=== PATIENT | female | born 1945 | race Caucasian/White ===

== ENCOUNTER → 2018-06-08 08:40 | Outpatient (CLI) | payer MEDICARE, OTHER, SELFPAY ==
--- NOTE | 2018-06-08 | DI.MG.S_ITS ---
BILATERAL DIGITAL SCREENING MAMMOGRAM 3D/2D WITH CAD WITH AUGMENTATION: 06/08/2018 CLINICAL: Routine screening. Comparison is made to exams dated: 03/17/2017 mammogram - [facility], 06/30/2013 mammogram, and 01/15/2012 mammogram - [facility]. The tissue of both breasts is predominantly fatty. Current study was also evaluated with a Computer Aided Detection (CAD) system. Bilateral breast implants are intact. There is a stable benign area of fat necrosis in both breasts. There also are stable benign calcifications in both breasts. No significant masses, calcifications, or other findings are seen in either breast. There has been no significant interval change. IMPRESSION: There is no mammographic evidence of malignancy. A 1 year screening mammogram is recommended. This exam was interpreted at Station ID: [id number]. NOTE: For mammograms, a report in lay terms will be sent to the patient. Approximately 15% of breast malignancies will not be visualized mammographically. In the management of a palpable breast mass, a negative mammogram must not discourage biopsy of a clinically suspicious lesion. Electronically Signed By: Ted ramos/zuri:06/08/2018 09:23:57 letter sent: Normal Exam ACR BI-RADS Category 2: Benign Finding(s) 3342F
== END ==
PROVIDERS: Visit Provider Physician Assistant
DX: Z12.31 Encounter for screening mammogram for malignant neoplasm of breast (principal)
CPT/HCPCS: 77063; 77067

== ENCOUNTER → 2019-03-22 09:39 | Outpatient (CLI) | payer MEDICARE, OTHER, SELFPAY ==
--- NOTE | 2019-03-22 | DI.MG.S_ITS ---
BILATERAL DIGITAL SCREENING MAMMOGRAM 3D/2D WITH CAD WITH AUGMENTATION: 03/22/2019 CLINICAL: Pre MRI screening Lump in Right breast. Comparison is made to exams dated: 06/08/2018 mammogram, 03/17/2017 mammogram - [facility], and 06/30/2013 mammogram - [facility]. The tissue of both breasts is predominantly fatty. Current study was also evaluated with a Computer Aided Detection (CAD) system. Bilateral breast implants are intact. There is a stable benign area of fat necrosis in both breasts. There also are stable benign calcifications in both breasts. No significant masses, calcifications, or other findings are seen in either breast. There has been no significant interval change. IMPRESSION: There is no mammographic evidence of malignancy. A 1 year screening mammogram is recommended. This exam was interpreted at Station ID: [id number]. NOTE: For mammograms, a report in lay terms will be sent to the patient. Approximately 15% of breast malignancies will not be visualized mammographically. In the management of a palpable breast mass, a negative mammogram must not discourage biopsy of a clinically suspicious lesion. Electronically Signed By: Monty torres/zuri:03/22/2019 19:18:09 letter sent: Normal Exam ACR BI-RADS Category 2: Benign Finding(s) 3342F
--- NOTE | 2019-03-22 | DI.MRI.S_ITS ---
SCREENING BREAST MRI OF BOTH BREASTS: 03/22/2019 CLINICAL: Lump in right breast. TECHNIQUE: The patient was placed prone in a dedicated breast imaging coil. Precontrast axial STIR and 3D FLASH without fat saturation sequences were obtained. Both before and after bolus injection of contrast, sequential 1-minute axial 3D FLASH with fat saturation sequences for 3 time points, with subtraction images and maximum intensity projections (MIP's) generated. Delayed sagittal FLASH images with fat saturation were also obtained. Computer-aided detection, including computer algorithm analysis of MRI image data for lesion detection and characterization, pharmacokinetic analysis, with further physician review for interpretation, was performed. COMPARISON: Mammogram dated 03/22/19, 06/08/18, 03/17/17, and 06/30/13. FINDINGS: Image quality: Excellent Right breast: There is minimal background parenchymal enhancement. There are large, extensive areas of fat intensity lesions within the right breast predominantly anterior to the saline breast implant with surrounding rim of calcification correlating with dense dystrophic and rim calcified masses seen on comparison mammograms. Mammographically these appear typical for fat necrosis which have remained stable over the past several years. There is mild, relatively thin peripheral enhancement surrounding these calcified central fat intensity masses compatible with postinflammatory changes. Otherwise, no suspicious mass lesions, or abnormal non-mass enhancement. Right saline breast implant appears intact and unremarkable in MRI appearance. No suspicious skin or nipple abnormalities. Left breast: There is minimal background parenchymal enhancement. Numerous rim calcified fat intensity masses are noted in the left breast correlating with areas of fat necrosis seen on comparison mammograms. These also remain stable over the years. These also demonstrate thin peripheral enhancement which is also likely related to postinflammatory changes. Otherwise, no suspicious mass lesions or abnormal non-mass enhancement. Incidental note of a 6 mm intramammary lymph node in the anterior upper, inner breast. Left saline breast implant appears intact and unremarkable in appearance. No suspicious skin or nipple abnormalities. Miscellaneous: No axillary or internal mammary chain adenopathy identified in the bilateral breast/axilla. Limited evaluation of the chest and abdomen appear unremarkable. IMPRESSION: Benign changes of extensive right and moderate left fat necrosis correlating with typical mammographic features of fat necrosis seen on comparison mammograms. These have remained stable for numerous years and their stability over time supports a benign process. Intact bilateral saline breast implants. No MRI evidence for malignancy in the bilateral breast. Recommend routine screening mammogram in one year. BIRADS 2, benign. COMMENT: The imaging literature indicates that a negative contrast breast MRI examination has a high sensitivity and a moderate specificity for detecting and excluding invasive carcinomas to a detection threshold of 3-5 mm; nonetheless, appropriate clinical and mammographic follow-up are recommended. MRI is not sensitive for detecting DCIS (ductal carcinoma in situ) and may not detect large invasive neoplasms that show only minimal enhancement such as mucinous carcinoma. If there are suspicious calcifications or clinically worrisome palpable masses, then biopsy should still be considered. Invasive neoplasms can be hidden by co-existent and benign enhancement caused by mastitis, hormone therapy effects, radiation therapy, , and recent biopsy or surgery. False positive examinations can occur in a number of circumstances, including breasts that have recently been subject to invasive procedures and those that contain atypical ductal hyperplasia, hormonally stimulated glandular tissue, fat necrosis, or radial scars. A 1 year screening mammogram is recommended. This exam was interpreted at Station ID: [id number]. Electronically Signed By: Monty Finley M.D. aty/:03/22/2019 19:51:47 letter sent: Normal Exam ACR BI-RADS Category 2: Benign Finding(s) 3342F
== END ==
PROVIDERS: PCP Internal Medicine; Visit Provider Physician Assistant
DX: Z12.31 Encounter for screening mammogram for malignant neoplasm of breast (principal); Z12.39 Encounter for other screening for malignant neoplasm of breast; N63.10 Unspecified lump in the right breast, unspecified quadrant; R92.1 Mammographic calcification found on diagnostic imaging of breast; N64.1 Fat necrosis of breast; Z98.82 Breast implant status
CPT/HCPCS: 77049; 77063; 77067; A9579

== ENCOUNTER → 2020-04-27 14:29 | Outpatient (CLI) | payer MEDICARE, OTHER, SELFPAY ==
[2020-04-30 15:44] LABS: COVID19 Sendout Not detected (Not Detect)
== END ==
PROVIDERS: PCP Internal Medicine; Visit Provider Physician Assistant
DX: Z11.59 Encounter for screening for other viral diseases (principal)
CPT/HCPCS: 87635

== ENCOUNTER 2020-04-30 13:01 | Day surgery (SDC) | payer MEDICARE, OTHER, SELFPAY ==
[2020-04-30 13:40] VITALS: BP 127/76; PULSE 84; RESP 16; TEMP 36.6; O2SAT 99
[2020-04-30] MEDS: SODIUM CHLORIDE 0.9% 1,000 ML 200 ML IV (13:51)
[2020-04-30 13:53] LABS: COVID19 -Nasal RAPID Negative (Negative)
--- NOTE | 2020-04-30 14:22 | PM.HP.1 ---
History of Present Illness History of Present Illness Date Patient Seen: 04/30/20 Time Patient Seen: 14:22 Chief complaint: [facility] Narrative: This is a 74-year-old woman with history of colon polyps found on prior colonoscopy in 2013. She denies any new symptoms of hematochezia, melena, unexplained abdominal pain, or unexplained weight loss. Her mother had colon cancer was diagnosed at age 50. The patient denies any significant medical problems, and says she is quite healthy. ROS: Urinary tract infections, psoriasis, Thirteen system review is otherwise negative other than as mentioned below and in HPI. PE: GENERAL: Well groomed and cooperative. Appears stated age. Answers questions promptly and appropriately. Vital signs noted. HENT: Normocephalic, atraumatic. Hearing intact. EYES: Conjunctiva pink, sclera white, no periorbital swelling. CARDIOVASCULAR: Regular rate. No pedal edema. RESPIRATORY: Non-tachypneic, breathing comfortably on room air. GASTROINTESTINAL: Abdomen soft and non-distended GENITALURINARY: No flank tenderness. MUSCULOSKELETAL: Equal tone and mass bilaterally. SKIN: Warm, dry, soft, appropriate color for ethnicity. No other lesions, rashes, or wounds. NEURO: Alert and Oriented X 3. No gross sensory deficits, or cognitive issues. PSYCH: Appropriate affect and mood. Patient History Medical History Diabetes (Acute) High cholesterol (Acute) Hypertension (Acute) Family & Social History Social History: household members spouse Tobacco & Substance use: Smoking Status Never smoker alcohol intake current alcohol intake frequency holiday/special occasion Substance Use Type marijuana Meds Home Medications and Allergies Home Medications Medication Instructions Recorded Confirmed Type atorvastatin 20 mg PO DAILY 04/30/20 04/30/20 History hydrochlorothiazide 25 mg PO DAILY 04/30/20 04/30/20 History lisinopril 20 mg PO BID 04/30/20 04/30/20 History multivitamin 1 tab PO DAILY 04/30/20 04/30/20 History Allergies Allergy/AdvReac Type Severity Reaction Status Date / Time No Known Drug Allergies Allergy Verified 04/30/20 13:40 Exam Vital Signs (past 8 hours): - 04/30/20 13:40 Temperature 98 F Pulse Rate 84 Respiratory Rate 16 Blood Pressure 127/76 Pulse Oximetry 99 Oxygen Delivery Method Room Air Objective Labs Labs: Laboratory Results - last 24 hr 04/30/20 13:29 COVID-19 PCR Negative Assessment & Plan Assessment and plan (1) Personal history of colonic polyps: Status: Acute Assessment & Plan narrative: Risks and benefits of screening colonoscopy and possible polypectomy were discussed with the patient including risk of bleeding, perforation, need for additional procedures, risks of anesthesia. The patient desires to proceed with the colonoscopy procedure. COVID-19 COVID-19 status: Negative Result date/Date tested (Pos, Neg/Pending): 04/30/20 Time Spent With Patient Time with patient: 15-24 minutes Quality VTE Deep Vein Thrombosis/Pulmonary Embolism Present on Admission: No
--- NOTE | 2020-04-30 14:25 | PM.OP.ENDO ---
Operative Date/Time/Diagnoses Date of procedure: 04/30/20 Time of procedure: 14:25 Pre-op diagnosis: Personal history of colon polyps Post-op diagnosis: other (No polyps) Procedure & Clinicians Study performed: Colonoscopy Procedural sedation performed by the endoscopy Indications: Personal history of colon polyps Surgeon: Armida Marc Procedure Notes SCOAP/Timeout: Performed Procedure in detail: The patient was brought to the room and placed in left lateral decubitus position with all bony prominences padded. A time-out was performed and then the patient was given procedural sedation starting with 2 mg of Versed and 100 mcg of fentanyl. 4mg of Versed and 150 mcg. Vitals were monitored throughout the procedure and remained stable. Once adequately sedated, the procedure was begun. A rectal exam was performed revealing no abnormalities. The colonoscope was then introduced to the rectum and advanced to the cecum in the usual fashion. The cecum was identified by the appendiceal orifice, the mucosal tri-fold, and the ileocecal valve. The scope was then retracted while rotating side to side and examining each mucosal fold. At the conclusion of the procedure retroflexion was performed and small grade 1-2 internal hemorrhoids without stigmata of bleeding were seen. The scope was then withdrawn from the rectum the procedure was concluded. The patient tolerated the procedure well and was transferred to the PACU in stable condition. Scope withdrawal time: 8 Sedation minutes: 15 Specimen(s): none sent Complications: none Impression: Normal colon. No polyps Post-procedure Recommendations: Colonscopy in 5 years (Due to high risk family history, mother with colon cancer) Follow up: as needed Disposition: PACU
[2020-04-30] MEDS: fentaNYL 250 MCG/5 ML INJ IV (14:29)
[2020-04-30] MEDS: MIDAZOLAM 5 MG/5 ML VIAL IV (14:29)
[2020-04-30 14:48] VITALS: BP 122/70; PULSE 77; RESP 13; TEMP 36.6; O2SAT 96
[2020-04-30 14:53] VITALS: BP 102/60; PULSE 94; RESP 23; O2SAT 100
[2020-04-30 14:58] VITALS: BP 103/61; PULSE 73; RESP 16; O2SAT 96
[2020-04-30 15:03] VITALS: BP 105/68; PULSE 70; RESP 17; O2SAT 98
--- NOTE | 2020-04-30 15:10 | SUR.PHASEI ---
1505 Awake, stable, tolerating PO well, denies pain.
[2020-04-30 15:24] VITALS: BP 123/69; PULSE 70; RESP 14; TEMP 36.3; O2SAT 97
== END 2020-04-30 16:05 | disposition home or self-care (01) ==
PROVIDERS: PCP Internal Medicine; Referring Provider Internal Medicine; Visit Provider Surgery
PROC: 0DJD8ZZ Inspection of Lower Intestinal Tract, Via Natural or Artificial Opening Endoscopic (ICD-10-PCS; CPT 45378; principal; 2020-04-30 14:30)
DX: Z12.11 Encounter for screening for malignant neoplasm of colon (principal); Z86.010 Personal history of colon polyps; Z80.0 Family history of malignant neoplasm of digestive organs; K64.0 First degree hemorrhoids; Z11.59 Encounter for screening for other viral diseases
CPT/HCPCS: G0105; 87635; 99152; J2250; J3010

== ENCOUNTER → 2021-05-12 14:35 | Outpatient (CLI) | payer MEDICARE, OTHER, SELFPAY | PROVIDERS: PCP Internal Medicine; Referring Provider Internal Medicine; Visit Provider Internal Medicine | DX: Z78.0 Asymptomatic menopausal state (principal) | CPT/HCPCS: 77080 ==

== ENCOUNTER → 2021-05-14 10:18 | Outpatient (CLI) | payer MEDICARE, OTHER, SELFPAY ==
--- NOTE | 2021-05-14 | DI.MG.S_ITS ---
BILATERAL DIGITAL SCREENING MAMMOGRAM 3D/2D WITH CAD WITH AUGMENTATION: 05/14/2021 CLINICAL: Routine screening. Family history of breast cancer. Comparison is made to exams dated: 03/22/2019 mammogram, 06/08/2018 mammogram, and 03/17/2017 mammogram - [facility]. There are scattered fibroglandular elements in both breasts. Current study was also evaluated with a Computer Aided Detection (CAD) system. There is an oval equal density focal asymmetry with an indistinct margin in the left breast at 12 o'clock anterior depth. The implants show no evidence of rupture. No other significant masses, calcifications, or other findings are seen in either breast. IMPRESSION: INCOMPLETE: NEEDS ADDITIONAL IMAGING EVALUATION The oval equal density focal asymmetry in the left breast is indeterminate. Mediolateral and spot compression views as well as additional views with possible ultrasound are recommended. This exam was interpreted at Station ID: [id number]. NOTE: For mammograms, a report in lay terms will be sent to the patient. Approximately 15% of breast malignancies will not be visualized mammographically. In the management of a palpable breast mass, a negative mammogram must not discourage biopsy of a clinically suspicious lesion. Electronically Signed By: Ted Lema M.D. ddsanna/:05/14/2021 13:54:54 letter sent: Additional Imaging Needed ACR BI-RADS Category 0: Incomplete 3340F
== END ==
PROVIDERS: PCP Internal Medicine; Referring Provider Internal Medicine; Visit Provider Internal Medicine
DX: Z12.31 Encounter for screening mammogram for malignant neoplasm of breast (principal); Z80.3 Family history of malignant neoplasm of breast; N64.89 Other specified disorders of breast
CPT/HCPCS: 77063; 77067

== ENCOUNTER 2024-03-25 19:04 | Emergency (ER) | payer MEDICARE, OTHER, SELFPAY ==
[2024-03-25] VITALS (9 sets, daily range): BP systolic 126–169; BP diastolic 78–80; PULSE 102–123; RESP 20; TEMP 38.8; O2SAT 95–98; BMI 26.6
--- NOTE | 2024-03-25 19:27 | EKG_ITS ---
[address] [address] Test Date: 2024-03-25 Pat Name: Irene Khanna Department: [facility] Room: Gender: Female Sausage Smoker: [facility] : 1945 Requested By: Order Number: [id number] Reading MD: Evaristo Galloway Measurements Intervals [place] Rate: 110 P: 38 CT: 166 QRS: -20 QRSD: 86 T: 65 QT: 328 QTc: 443 Interpretive Statements Sinus tachycardia Anterior infarct , age undetermined Electronically Signed On 03-27-2024 7:25:13 PDT by Evaristo Galloway
--- NOTE | 2024-03-25 19:28 | ED.URI ---
HPI - URI/Sore Throat General Chief Complaint: Upper Respiratory Symptoms Stated Complaint: COVID+ Time Seen by Provider: 03/25/24 19:14 Source: patient Mode of arrival: Ambulatory History of Present Illness HPI Narrative: 78-year-old female with history of hypertension, remote history of breast cancer (in remission) presents by private vehicle from home for evaluation. Patient states that nearly 2 weeks ago she and her tested positive for COVID 19. Patient was beginning to feel better, but over the last few days she has felt poorly with fevers and malaise. Out of concern given her history of breast cancer patient came in with her for evaluation. She denies chest pain, shortness of breath, leg swelling, other complaints at this time. Last took 500 mg of ibuprofen at 2:30 p.m. Related Data Home Medications Medication Instructions Recorded Confirmed atorvastatin 20 mg tablet 20 mg PO DAILY 04/30/20 04/30/20 hydrochlorothiazide 25 mg tablet 25 mg PO DAILY 04/30/20 04/30/20 lisinopril 20 mg tablet 20 mg PO BID 04/30/20 04/30/20 multivitamin 1 tab PO DAILY 04/30/20 04/30/20 Previous Rx's Medication Instructions Recorded doxycycline hyclate 100 mg tablet 100 mg PO BID #10 tabs 03/25/24 Allergies Allergy/AdvReac Type Severity Reaction Status Date / Time No Known Drug Allergies Allergy Verified 04/30/20 13:40 Patient History Medical History High cholesterol Hypertension Diabetes Social History household members: spouse Smoking Status: Never smoker alcohol intake: current Smoking Status: Never smoker alcohol intake frequency: holidays/special occasions only Substance Use Type: marijuana Exam Initial Vital Signs Initial Vital Signs: Vital Signs Temperature 101.8 F H 03/25/24 19:08 Pulse Rate 123 H 03/25/24 19:08 Respiratory Rate 20 03/25/24 19:08 Blood Pressure 126/80 03/25/24 19:08 Pulse Oximetry 98 03/25/24 19:08 Oxygen Delivery Method Room Air 03/25/24 19:08 Const: Awake, alert, ill-appearing, nontoxic Cardiac: Tachycardia, regular rhythm RESP: unlabored, possible mild inspiratory crackles RLL Skin: Warm, Dry, intact, no rashes Neuro: AO x3, CN II-XII grossly intact, moves all extremities Course Orders Ordered: ED Orders 03/25/24 19:27 Chest [XR chest 1V] Stat EKG-12 Lead Stat 03/25/24 20:15 CBC Auto Diff [Complete Blood Count AUTO DIFF] Stat CMP [Comprehensive Metabolic Panel] Stat Discontinued Medications Acetaminophen (Acetaminophen 325 Mg Tablet) 975 mg PO NOW ONE Stop: 03/25/24 19:52 Last Admin: 03/25/24 20:24 Dose: 975 mg Documented By: AB Doxycycline Hyclate (Doxycycline Hyclate 100 Mg Tablet) 100 mg PO NOW ONE Stop: 03/25/24 21:24 Last Admin: 03/25/24 21:52 Dose: 100 mg Documented By: Sodium Chloride (Normal Saline 0.9%) 1,000 mls @ 1,000 mls/hr IV BOLUS ONE Stop: 03/25/24 20:50 Last Infusion: 03/25/24 22:12 Dose: Infused Documented By: Admin: 03/25/24 20:25 Dose: 1,000 mls/hr Documented By: Vital Signs Vital signs: Vital Signs - 8 hr 03/25/24 19:08 03/25/24 19:16 03/25/24 19:30 Temperature 101.8 F H Pulse Rate 123 H 114 H 109 H Respiratory Rate 20 Blood Pressure 126/80 Pulse Oximetry 98 98 97 Oxygen Delivery Method Room Air 03/25/24 20:00 03/25/24 20:30 03/25/24 21:00 Temperature Pulse Rate 107 H 110 H 113 H Respiratory Rate Blood Pressure Pulse Oximetry 98 98 96 Oxygen Delivery Method Room Air 03/25/24 21:03 03/25/24 21:03 03/25/24 21:30 Temperature Pulse Rate 111 H 107 H Respiratory Rate Blood Pressure 169/80 H Pulse Oximetry 97 95 Oxygen Delivery Method Room Air 03/25/24 21:30 03/25/24 22:00 03/25/24 22:00 Temperature Pulse Rate 102 H Respiratory Rate Blood Pressure 153/78 H 165/79 H Pulse Oximetry 95 Oxygen Delivery Method Room Air MDM - URI/Sore Throat Differential Diagnosis Differential diagnosis: Likely upper respiratory infection, viral infection and other (pneumonia) Lab Data 03/25/24 20:15 03/25/24 20:15 Labs: Lab Results 03/25/24 Range/Units 20:15 WBC 15.4 H (4.5-11.0) X10^3/uL RBC 4.39 (4.0-5.2) X10^6/uL Hgb 13.3 (12.0-16.0) g/dL Hct 38.1 (36-46) % MCV 86.8 (80-100) fL MCH 30.2 (26-34) PG MCHC 34.8 (30-36) % RDW 13.0 (11.6-14.8) % Plt Count 193 (150-400) X10^3/uL Neut % (Auto) 92.2 H (50-75) % Lymph % (Auto) 3.0 L (25-40) % [place] % (Auto) 4.4 (3-14) % Eos % (Auto) 0.2 L (2-4) % Baso % (Auto) 0.2 (0-2) % Neut # (Auto) 55272 H (6092-3169) /uL Lymph # (Auto) 500 L (9110-4809) /uL [place] # (Auto) 700 (0-900) /uL Eos # (Auto) 0 (0-450) /uL Baso # (Auto) 0 (0-100) /uL Sodium 134 L (137-145) mmol/L Potassium 3.2 L (3.4-5.1) mmol/L Chloride 98 (98-107) mmol/L Carbon Dioxide 26 (22-32) mmol/L BUN 24 H (7-17) mg/dL Creatinine 0.76 (0.52-1.04) mg/dL Estimated GFR > 60 (>60) mL/min BUN/Creatinine Ratio 31.6 H (6-22) Glucose 145 H (80-110) mg/dL Calcium 9.8 (8.4-10.2) mg/dL Total Bilirubin 1.1 (0.2-1.3) mg/dL AST 36 (14-36) IU/L ALT 39 H (<35) IU/L Alkaline Phosphatase 80 (38-126) U/L Total Protein 7.5 (6.3-8.2) g/dL Albumin 4.6 (3.5-5.0) g/dL Globulin 2.9 (1.7-4.1) g/dL Albumin/Globulin Ratio 1.6 (1.0-2.8) Imaging Data Chest x-ray: Radiologist's Impression: PROCEDURE: XR CHEST 1V INDICATIONS: COVID, low O2 at home TECHNIQUE: One view of the chest was acquired. COMPARISON: [facility], CHEST 2 VIEW, 03/17/2017, 13:21. FINDINGS: Surgical changes and devices: Left breast clips and left axillary clips are seen. Lungs and pleura: An incomplete inspiratory result is noted, causing a crowded appearance to the lung markings. No focal infiltrates are seen. Generalized interstitial prominence can be seen. No pneumothorax or significant pleural effusions are seen. Mediastinum: Mediastinal contours appear normal. Heart size is normal. Bones and chest wall: No suspicious bony lesions. Age-appropriate bony degenerative changes are seen. [id number] dextroconvex scoliosis is seen. There is a rim thyroid nodule. IMPRESSION: No focal infiltrates are seen. Generalized interstitial prominence can be seen, which is consistent with the given clinical history a viral pneumonia. Postoperative and degenerative changes are seen. Dictated by: Rolando Nolasco M.D. on 03/25/2024 at 18:43 Approved by: Rolando Nolasco M.D. on 03/25/2024 at 18:44 MDM Narrative Medical decision making narrative: Ill-appearing but nontoxic patient presenting for evaluation, recently diagnosed with the COVID-19 and was initially improving, but now has fever and worsening symptoms. She was tachycardic and febrile on arrival, however patient states that she does get health anxiety and her heart rate is normally faster at doctor's offices. Tylenol ordered for fever and discomfort, IV fluids, labs, chest x-ray ordered. Laboratory work is reviewed, WBC count 15.4, hemoglobin 13.3, platelet count 193, neutrophil 92%, sodium 134, potassium 3.2, creatinine 0.76, normal liver enzymes. Chest x-ray read as no focal infiltrate, however on my review it does appear as though there may be a small right lower lobe infiltrate developing, however lung exam is overall relatively benign. Since patient does have fever and leukocytosis, as well as worsening after initial improvement following viral illness I believe it to be prudent to treat as pneumonia. Patient given initial dose in emergency department and prescription sent to pharmacy of choice. ED return precautions discussed at bedside. Discharge Plan Departure Patient Disposition: Home Clinical Impression: Pneumonia Instructions: DI for Pneumonia -- Adult Activity Restrictions/Additional Instructions: You had a fever and mildly elevated white blood cell count today, which could indicate infection. Your chest x-ray may show a small pneumonia on the right-hand side, and so I am covering you with antibiotics. These has been sent to the [facility] in [place]. Make sure to drink plenty of fluids, you may take 1000 mg of Tylenol and 400 mg of ibuprofen every 6 hours as needed for pain or fever. Prescriptions: New doxycycline hyclate 100 mg tablet 100 mg PO BID Qty: 10 0RF No Action multivitamin Tablet 1 tab PO DAILY atorvastatin 20 mg tablet 20 mg PO DAILY lisinopril 20 mg tablet 20 mg PO BID hydrochlorothiazide 25 mg tablet 25 mg PO DAILY Stand Alone Forms: Patient Portal/API
[2024-03-25] MEDS: ACETAMINOPHEN 325 MG TABLET 975 MG PO (20:24)
[2024-03-25] MEDS: SODIUM CHLORIDE 0.9% 1,000 ML 1000 ML IV (20:25)
[2024-03-25 20:27] LABS: Add Manual Diff / Slide Review NO; Basophils Absolute Auto 0 /uL (0-100); Basophils Percent Auto 0.2 % (0-2); Eosinophils Absolute Auto 0 /uL (0-450); Eosinophils Percent Auto 0.2 % (2-4); Hematocrit 38.1 % (36-46); Hemoglobin 13.3 g/dL (12.0-16.0); Lymphocytes Absolute Auto 500 /uL (1100-4500); Mean Corpuscular HGB Conc 34.8 % (30-36); Mean Corpuscular Hemoglobin 30.2 PG (26-34); Mean Corpuscular Volume 86.8 fL (80-100); Monocytes Absolute Auto 700 /uL (0-900); Monocytes Percent Auto 4.4 % (3-14); Neutrophils Absolute Auto 14200 /uL (1500-7000); Neutrophils Percent Auto 92.2 % (50-75); Platelet Count 193 X10^3/uL (150-400); Red Blood Cell Count 4.39 X10^6/uL (4.0-5.2); White Blood Cell Count 15.4 X10^3/uL (4.5-11.0)
[2024-03-25 20:45] LABS: Alanine Aminotransferase 39 IU/L (<35); Albumin 4.6 g/dL (3.5-5.0); Albumin Globulin Ratio 1.6 (1.0-2.8); Alkaline Phosphatase 80 U/L (38-126); Aspartate Aminotransferase 36 IU/L (14-36); BUN Creatinine Ratio 31.6 (6-22); Bilirubin Total 1.1 mg/dL (0.2-1.3); Blood Urea Nitrogen 24 mg/dL (7-17); Calcium 9.8 mg/dL (8.4-10.2); Carbon Dioxide 26 mmol/L (22-32); Chloride 98 mmol/L (98-107); Estimated Glomerular Filt Rate > 60 mL/min (>60); Globulin 2.9 g/dL (1.7-4.1); Glucose 145 mg/dL (80-110); HEMOLYSIS < 15 (0-50); Potassium 3.2 mmol/L (3.4-5.1); Sodium 134 mmol/L (137-145); Total Protein 7.5 g/dL (6.3-8.2)
--- NOTE | 2024-03-25 20:46 | PC.NURSE ---
Pt spouse diagnosed with COVID 03/12/24 and he started to feel better after a week, but then her symptoms started and have been progressively worsening. Today she had a fever and headache. Took 500 mg Tylenol at 2:30 pm, but no other medications.
[2024-03-25] MEDS: DOXYCYCLINE HYCLATE 100 MG TABLET PO (21:52)
== END 2024-03-25 22:29 | disposition home or self-care (01) ==
PROVIDERS: Emergency Provider Emergency Medicine
DX: J18.9 Pneumonia, unspecified organism (principal); Z86.16 Personal history of COVID-19; R00.0 Tachycardia, unspecified
CPT/HCPCS: 36415; 71045; 80053; 85025; 93005; 99284